=== PATIENT | female | born 2000 | race Two or more races ===

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

== ENCOUNTER 2023-12-21 12:44 | Emergency (ER) | payer SELFPAY ==
[~2023-12-21] VITALS: Ht 167.6 cm; Wt 69.0 kg
[2023-12-21 13:34] LABS: Urine Bacteria MOD /hpf (None Seen); Urine Blood TRACE /uL (Negative); Urine Color Light-Yellow (Yellow); Urine Mucus FEW (None Seen); Urine Protein, UAD TRACE (Negative); Urine Specific Gravity 1.029 (1.001-1.035); Urine Urobilinogen Normal (Negative); Urine WBC 14 /hpf (0 - 5)
[2023-12-21 14:03] LABS: Urine Clarity Hazy (Clear)
[2023-12-21] MEDS ORDERED: CIPR-173 PO (14:13)
[2023-12-21 14:28] VITALS: BP 112/70; PULSE 75; RESP 16; TEMP 98.5; O2SAT 98
== END 2023-12-21 14:42 | disposition home or self-care (01) ==
LOC: ER 12:44
DX: N39.0 Urinary tract infection, site not specified (principal)
CPT/HCPCS: 81001; 81025

== ENCOUNTER 2025-04-26 21:20 | Emergency (ER) | payer OTHER ==
[~2025-04-26] VITALS: Ht 167.6 cm; Wt 79.2 kg
[~2025-04-26 21:20] MED LIST: CIPR-173 PO
[2025-04-26 22:23] LABS: Chloride 106 mmol/L (98-107); Potassium 3.8 mmol/L (3.5-5.1); Sodium 143 mmol/L (136-145)
[2025-04-26 22:24] LABS: Anion Gap 9 (5-15); Calcium 9.4 mg/dL (8.7-10.4); Carbon Dioxide 28 mmol/L (20-31)
[2025-04-26 22:29] LABS: BUN/Creatinine Ratio 14.0 (10.0-20.0); Blood Urea Nitrogen 12 mg/dL (9-23); Glucose 104 mg/dL (74-106)
[2025-04-26 22:45] LABS: Hematocrit 39.3 % (36.0-46.0); Hemoglobin 13.4 g/dL (12.2-16.2); Mean Corpuscular Hemoglobin 29.9 pg (28.0-32.0); Mean Corpuscular Volume 87.6 fL (80.0-100.0); Nucleated Red Blood Cells % 0.0 %
--- NOTE | 2025-04-26 22:46 | DVH ---
CLINICAL HISTORY: Chest Pain TECHNIQUE: Single view of the chest was obtained. COMPARISON: None FINDINGS: The heart size and pulmonary vasculature are normal. The lungs are clear. IMPRESSION: NO ACUTE CARDIOPULMONARY PROCESS.
--- NOTE | 2025-04-26 23:00 | ED.PDOC ---
History of Present Illness HPI Comments 25-year-old female with no past medical history presenting for evaluation of the intermittent chest pain over the past month. Patient reports brief intermittent chest pain along both sides of the upper chest. At times feels it along the left upper chest, at times along the right upper chest. Also feels it go into the neck at times. She states that she vapes a lot. 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 Denies any shortness of breath. No recent fever, cough. Has not taken anything for her symptoms. Has not seen her primary care doctor for this. Chief Complaint: Chest Pain Time Seen by MD: 21:33 Primary Care Provider: unknown Allergies: Coded Allergies: NO KNOWN ALLERGIES (Unverified , 07/24/16) Home Meds Active Scripts Ciprofloxacin Hcl (Cipro) 500 Mg Tab, 1 TAB PO BID, #14 TAB Prov:SALLY SEN MD 12/21/23 Mode of Arrival: Ambulatory Past Medical History PAST MEDICAL HISTORY: Denies Surgical History: Denies all surgeries VIDEO TAPE DUPLICATOR History: No Pertinent VIDEO TAPE DUPLICATOR History Family History Family History: Reviewed,noncontributory to illness Social History Smoker: Other Alcohol: Denies ETOH Use Drugs: Denies Drug Use Lives In: Home Constitutional: denies: chills, diaphoresis, fatigue, fever, malaise, sweats, weakness, others EENTM: denies: blurred vision, double vision, ear bleeding, ear discharge, ear drainage, ear pain, ear ringing, eye pain, eye redness, hearing loss, mouth pain, mouth swelling, nasal discharge, nose bleeding, nose congestion, nose pain, photophobia, tearing, throat pain, throat swelling, voice changes, others Respiratory: denies: cough, hemoptysis, orthopnea, SOB at rest, shortness of breath, SOB with excertion, stridor, wheezing, others Cardiovascular: reports: chest pain; denies: dizzy spells, diaphoresis, Dyspnea on exertion, edema, irregular heart beat, left arm pain, lightheadedness, palpitations, PND, syncope, others Gastrointestinal: denies: abdomen distended, abdominal pain, blood streaked bowels, constipated, diarrhea, dysphagia, difficulty swallowing, hematemesis, melena, nausea, poor appetite, poor fluid intake, rectal bleeding, rectal pain, vomiting, others Genitourinary: denies: abnormal vagina bleeding, burning, dyspareunia, dysuria, flank pain, frequency, hematuria, incontinence, pain, , vagina discharge , urgency, others Neurological: denies: dizziness, fainting, headache, left sided numbness, left sided weakness, numbness, paresthesia, pre-existing deficit, right sided numbness, right sided weakness, seizure, speech problems, tingling, tremors, weakness, others Musculoskeletal: reports: muscle pain, neck pain; denies: back pain, gout, joint pain, joint swelling, muscle stiffness, others Integumetry: denies: bruises, change in color, change in hair/nails, dryness, laceration, lesions, lumps, rash, wounds, others Allergic/Immunocompromised: denies: Difficulty Healing, Frequent Infections, Hives, Itching, others Hematologic/Lymphatic: denies: anemia, blood clots, easy bleeding, easy bruising, swollen glands, others Endocrine: denies: excessive hunger, excessive sweating, excessive thirst, excessive urination, flushing, intolerance to cold, intolerance to heat, unexplained weight gain, unexplained weight loss, others Psychiatric: denies: anxiety, bipolar disorder, depression, hopeless, panic disorder, schizophrenia, sleepless, suicidal, others All Other Systems: Reviewed and Negative Physical Exam General Appearance: No Apparent Distress, Normal HEENT: Normal ENT Inspection, Pharynx Normal, TMs Normal Neck: Full Range of Motion, Non-Tender, Normal, Normal Inspection Respiratory: Chest Non-Tender, Lungs Clear, No Accessory Muscle Use, No Respiratory Distress, Normal Breath Sounds Cardiovascular: No Edema, No JVD, No Murmur, No Gallop, Normal Peripheral Pulses, Regular Rate/Rhythm Breast Exam: Deferred Gastrointestinal: No Organomegaly, Non Tender, No Pulsatile Mass, Normal Bowel Sounds, Soft Genitalia: Deferred Pelvic: Deferred Rectal: Deferred Extremities: No calf tenderness, Normal capillary refill, Normal inspection, Normal range of motion, Non-tender, No pedal edema Musculoskeletal : Apperance: Normal Neurologic: Alert, assembly associate II-XII nml as Tested, No Motor Deficits, Normal Affect, Normal Mood, No Sensory Deficits Cerebellar Function: Normal Reflexes: Normal Skin: Dry, Normal Color, Warm Lymphatic: No Adenopathy Was a procedure done? Was a procedure done?: No EKG EKG #1: Pulse Rate (adult): 67 Ruso: Normal Cardiac Rhythm: NSR Block: None Hypertrophy: None ST: Normal EKG #2: Pulse Rate (adult): 63 Ruso: Normal Cardiac Rhythm: NSR Block: None ST: Normal Differential Dx Considerations may include: Muscular chest pain versus costochondritis versus ACS versus anxiety X-Ray, Labs, Meds, VS Vital Signs Date Time Temp Pulse Resp B/P (MAP) Pulse Ox O2 Delivery O2 Flow Rate FiO2 04/26/25 21:35 67 04/26/25 21:25 97.1 76 18 116/71 98 97.1 Lab Test 04/26/25 21:40 Range/Units White Blood Count 8.2 4.4-10.8 10^3/uL Red Blood Count 4.49 4.0-5.20 10^6/uL Hemoglobin 13.4 12.2-16.2 g/dL Hematocrit 39.3 36.0-46.0 % Mean Corpuscular Volume 87.6 80.0-100.0 fL Mean Corpuscular Hemoglobin 29.9 28.0-32.0 pg Mean Corpuscular Hemoglobin Concent 34.1 32.0-36.0 g/dL Red Cell Distribution Width 13.2 11.8-14.3 % Platelet Count 321 140-450 10^3/uL Mean Platelet Volume 7.2 6.9-10.8 fL Neutrophils (%) (Auto) 51.6 37.0-80.0 % Lymphocytes (%) (Auto) 37.2 10.0-50.0 % Monocytes (%) (Auto) 9.1 0.0-12.0 % Eosinophils (%) (Auto) 1.8 0.0-7.0 % Basophils (%) (Auto) 0.3 0.0-2.0 % Neutrophils # (Auto) 4.2 1.6-8.6 10 ^3/uL Lymphocytes # (Auto) 3.0 0.4-5.4 10 ^3/uL Monocytes # (Auto) 0.7 0-1.3 10 ^3/uL Eosinophils # (Auto) 0.1 0-0.8 10 ^3/uL Basophils # (Auto) 0 0-0.2 10 ^3/uL Nucleated Red Blood Cells 0.0 % Sodium Level 143 136-145 mmol/L Potassium Level 3.8 3.5-5.1 mmol/L Chloride Level 106 98-107 mmol/L Carbon Dioxide Level 28 20-31 mmol/L Anion Gap 9 5-15 Blood Urea Nitrogen 12 9-23 mg/dL Creatinine 0.86 0.550-1.02 mg/dL Glomerular Filtration Rate Calc 97 >90 mL/min BUN/Creatinine Ratio 14.0 10.0-20.0 Serum Glucose 104 74-106 mg/dL Calcium Level 9.4 8.7-10.4 mg/dL Troponin I High Sensitivity < 3 L </=34 ng/L Time of 1ST Reevaluation: 00:00 Reevaluation 1ST: Improved Patient Education/Counseling: Diagnosis, Treatment, Need For Follow Up Family Education/Counseling: No Family Present SEPSIS Sepsis Screen Date sepsis recognized/suspect: Apr 26, 2025 Time Sepsis recognized/suspect: 2124 Recent Procedure: No On Antibiotic Therapy: No Respiratory Rate >20: No Heart Rate >90: No Temp<36 C (96.8 F) or >38.3 C: No SBP <90 or MAP <65 mmHG: No New Acute Mental Status Change: No Is the patient on CPAP, BIPAP,: No Physician Orders Electrocardigram (04/26/25 21:42) Chest Xray 1 View (04/26/25 21:51) Vital Signs Date Time Temp Pulse Resp B/P (MAP) Pulse Ox O2 Delivery O2 Flow Rate FiO2 04/26/25 21:35 67 04/26/25 21:25 97.1 76 18 116/71 98 97.1 Laboratory Tests Test 04/26/25 21:40 White Blood Count 8.2 10^3/uL (4.4-10.8) Departure 1 Departure Time of Disposition: 00:15 (25-year-old female with no past medical history presenting for evaluation of the intermittent chest pain over the past month. Given the reports of chest pain consider possible ACS. However performed my the patient is otherwise young and healthy and has no cardiac risk factors. Patient has a heart score of 0. Single troponin was obtained which came back negative, does not require serial troponins given the recurrent chest discomfort over the past month. Patient with no associated shortness of breath, no pleuritic chest pain, has no risk factors for PE, does not seem consistent with such. Pt has no recent infectious symptoms, no current fever, cough, does not seem concerning for pneumonia. Chest x-ray was performed which shows no evidence of pneumothorax or other acute cardiopulmonary process. CBC with no evidence of critical leukocytosis or significant anemia. Metabolic panel with no evidence of acute electrolyte abnormalities. 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 Patient is hemodynamically stable here. Advised to take NSAIDs as needed for discomfort.) Impression: Primary Impression: Chest pain Disposition: HOME / SELF CARE / HOMELESS Condition: Stable Additional Instructions: You were evaluated today for chest pain. Your labs, EKG, chest x-ray were within normal limits. Due to your occupation you are likely having muscular chest wall pain. Consider taking Tylenol, ibuprofen as needed. Please follow up with your primary care doctor for further evaluation. Discharged With: Self Critical Care Note Critical Care Time?: No Stability Stability form required: No Heart Score Heart Score: Heart Score Response (Comments) Value History Slightly Suspicious 0 EKG Normal 0 Age <45 0 Risk Factors No known risk factors 0 Troponin Normal limit 0 Total 0 JACKSON WARD MD Apr 26, 2025 22:59
[2025-04-27 00:25] VITALS: BP 117/57; RESP 16; TEMP 98.6; O2SAT 98
[2025-04-27 00:35] VITALS: PULSE 63
--- NOTE | 2025-04-27 07:33 | ECG ---
[facility] Test Date: 2025-04-26 Test Time: 22:47:11 Pat Name: JET BOYLE Department: Room: Gender: F Chemical Waste Management Technician: : 2000 Requested By: JACKSON WARD Order Number: [id number] Reading MD: Kamari Garcia Measurements Intervals [place] Rate: 63 P: 59 NV: 171 QRS: 90 QRSD: 83 T: 72 QT: 419 QTc: 429 Interpretive Statements Sinus rhythm Borderline right axis deviation ST elev, probable normal early repol pattern Electronically Signed On 04-27-2025 17:06:54 PST by Kamari Garcia Please click the below link to view image of tracing.
== END 2025-04-27 00:32 | disposition home or self-care (01) ==
LOC: ER 21:20
DX: R07.89 Other chest pain (principal); F17.290 Nicotine dependence, other tobacco product, uncomplicated; Z79.899 Other long term (current) drug therapy
CPT/HCPCS: 36415; 71045; 80048; 84484; 85025; 93005